=== PATIENT | male | born 1990 | race American Indian/Alaskan Native ===

== ENCOUNTER 2020-07-14 15:01 | Outpatient (REF) | payer OTHER, SELFPAY | END 2020-07-14 15:02 | disposition home or self-care (01) | LOC: HO.LAB 15:01 | PROVIDERS: PCP Internal Medicine; Visit Provider Internal Medicine | DX: Z20.828 Contact with and (suspected) exposure to other viral communicable diseases (principal) | CPT/HCPCS: 87635 ==

== ENCOUNTER 2020-12-01 16:50 | Outpatient (REF) | payer OTHER, SELFPAY ==
--- NOTE | ~2020-12-01 | XR_ITS ---
EXAMINATION: XR KNEE, RIGHT CLINICAL INFORMATION: Pain COMPARISON: None TECHNIQUE: Four views of the right knee. FINDINGS: Bones and soft tissues are normal. No fracture or joint effusion. Alignment is anatomic. Joint spaces are well maintained. No abnormal soft tissue calcification. XR/XR knee RT 4V IMPRESSION: Normal right knee.
== END 2020-12-01 16:51 | disposition home or self-care (01) ==
LOC: HO.XRAY 16:50
PROVIDERS: PCP Internal Medicine; Visit Provider Internal Medicine
DX: M25.561 Pain in right knee (principal)
CPT/HCPCS: 73564

== ENCOUNTER → 2020-12-13 10:49 | Outpatient (BNVA) | payer OTHER, SELFPAY | PROVIDERS: PCP Internal Medicine; Visit Provider Orthopaedic Surgery ==

== ENCOUNTER 2021-05-23 07:22 | Emergency (ER) | payer OTHER, SELFPAY ==
--- NOTE | ~2021-05-23 | XR_ITS ---
EXAMINATION: XR SHOULDER, LEFT CLINICAL INFORMATION: Fall. COMPARISON: None TECHNIQUE: AP external rotation, Grashey, scapular Y, and axillary views of the left shoulder. FINDINGS: There is anterior inferior shoulder dislocation without any underlying fracture. The soft tissues are normal. XR/XR shoulder LT min 2V IMPRESSION: Left shoulder anterior dislocation. No fracture seen. No soft tissue abnormality.
--- NOTE | ~2021-05-23 | XR_ITS ---
EXAMINATION: XR SHOULDER, LEFT CLINICAL INFORMATION: Postreduction. COMPARISON: None TECHNIQUE: AP external rotation, Grashey, scapular Y, and axillary views of the left shoulder. FINDINGS: There is normal alignment of glenohumeral joint status post reduction. No fracture seen these joint is normal. The soft tissues are normal. XR/XR shoulder LT min 2V IMPRESSION: Unremarkable left shoulder exam.
[2021-05-23 07:41] VITALS: BP 149/78; PULSE 89; RESP 20; TEMP 36.7; O2SAT 98; BMI 30.5
--- NOTE | 2021-05-23 07:46 | ED.UPPEXIN ---
HPI - Extremity Injury (Upper) General Chief Complaint: Fall Stated Complaint: lt arm injury - fall Time Seen by Provider: 05/23/21 07:44 Source: patient Mode of arrival: ambulatory Limitations: no limitations History of Present Illness HPI narrative: reached out and fell with arms backwards L side trying to stop his son from also falling, L shoulder pain since MD complaint: injury to: left and shoulder Onset (ago): minute(s) Other Extremity Injury: left: shoulder Other injuries: none Handedness: right Place: home Severity: severe Relieving factors: none Exacerbating factors: movement of extremity Context: fall and direct blow Associated symptoms: denies other symptoms Related Data Previous Rx's Medication Instructions Recorded cyclobenzaprine 10 mg tablet 10 mg PO TID PRN #14 tab 05/23/21 ibuprofen 600 mg tablet 600 mg PO Q6H PRN #30 tab 05/23/21 Allergies Allergy/AdvReac Type Severity Reaction Status Date / Time No Known Allergies Allergy Verified 12/13/20 11:00 Review of Systems Review of Systems: Constitutional : No Fever, No Chills ENT/Mouth : No Ear Pain, No Hoarseness, No sore throat Eyes: No Eye Pain, No Swelling, No Redness, No Foreign Body Cardiovascular : No Chest Pain, No SOB Respiratory : No Cough, No Dyspnea Gastrointestinal : No Nausea, No Vomiting, No Diarrhea, No abdominal Pain Genitourinary : No Dysuria, No Hematuria Musculoskeletal : positive joint pain, No Myalgias, No Joint Swelling Skin : No Skin lacerations, No rash Neuro : No Weakness, No Numbness, No Loss of Consciousness, No Dizziness, No Headache Psych : No Anxiety/Panic, No Depression Heme/Lymph: no easy bruising, no Lymphadenopathy Endocrine : No Polyuria, No Polydipsia All other systems reviewed and are negative [facility] Past Medical History Attestation statement: The following information was validated with the patient. Medical History (Updated 05/23/21 @ 08:22 by Sarah Byrnes DO) Patellofemoral pain syndrome of right knee Surgical History (Updated 12/13/20 @ 11:01 by LELAND Kruger) S/P hernia repair Family History Family History (Updated 12/13/20 @ 11:01 by LELAND Kruger) Mother No problems noted. Father No problems noted. 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 Oriented X3. No acute distress. Eyes: Pupils equal, round and reactive to light. ENT: Pharynx normal. Neck: Normal inspection. Neck supple. CVS: Normal heart rate and rhythm. Pulses normal. Respiratory: No respiratory distress. Breath sounds normal. Abdomen: Soft and nontender. Skin: Skin warm and dry. Normal skin color. Normal skin turgor. Extremities: No lower extremity edema. L shoulder deformity consistent with dislocation, no crepitus felt, distal NV intact Neuro: Oriented X 3. No motor deficit. No sensory deficit. MDM - Extremity Injury (Upper) MDM Narrative Medical decision making narrative: 31 yo healthy male here with fall and likely L shoulder dislocation, xrays, IM pain control - will attempt reduction in ED with scapular manipulation dispo per results and successful reduction Procedures Orthopedic Joint Reduction Joint #1: Time Out Performed: Yes Side: left Joint Reduction Location: shoulder Analgesia: none Shoulder Technique Used (if applicable): scapula manipulation Post-reduction neuro exam: intact Post-reduction vascular: intact Post Reduction X-Ray Obtained: Yes Post Reduction X-Ray Results: reduced Splint Applied: Yes Patient Tolerated Procedure: well Orthopedic Splinting/Casting Injury #1: Side: left Upper Extremity Injury Location: shoulder Upper Extremity Immobilizer: sling/shoulder immobilizer Discharge Plan Discharge Clinical Impression: Dislocation of shoulder region Qualifiers: Encounter type: initial encounter Laterality: left Qualified Code(s): S43.005A - Unspecified dislocation of left shoulder joint, initial encounter Patient Disposition: Home, Self-Care Instructions: Shoulder Dislocation (ED), Shoulder Immobilizer (ED) Additional Instructions: return to ED for any worsening symptoms or concerns SLING for 3 days do not reach above , overhead, behind or extend too far for 2 weeks Prescriptions: New cyclobenzaprine 10 mg tablet 10 mg PO TID PRN (Reason: muscle spasm) Qty: 14 RF: 0 ibuprofen 600 mg tablet 600 mg PO Q6H PRN (Reason: pain) Qty: 30 RF: 0 Stand Alone Forms: Work/School Release
[2021-05-23] MEDS: HYDROmorphone HCl 2 MG/ML VIAL IM (07:50)
[2021-05-23] MEDS: Ondansetron ODT 4 MG TAB.RAPDIS TRANSLINGU (07:51)
[2021-05-23] MEDS: Cyclobenzaprine HCl 10 MG TABLET PO (08:31)
[2021-05-23] MEDS: HYDROcodone Bit/Acetam 5/325 TABLET 1 TAB PO (08:32)
[2021-05-23 09:02] VITALS: BP 146/92; PULSE 65; O2SAT 98
== END 2021-05-23 09:03 | disposition home or self-care (01) ==
PROVIDERS: Emergency Provider Emergency Medicine; PCP Internal Medicine
DX: S43.085A Other dislocation of left shoulder joint, initial encounter (principal); W18.30XA Fall on same level, unspecified, initial encounter; Y93.9 Activity, unspecified; Y92.9 Unspecified place or not applicable; Y99.9 Unspecified external cause status
CPT/HCPCS: 73030; 96372; 99283; 99284; J1170

== ENCOUNTER → 2021-09-13 13:35 | Outpatient (BNVA) | payer OTHER, SELFPAY | PROVIDERS: Visit Provider Urology ==

== ENCOUNTER → 2021-12-13 11:57 | Outpatient (BNVA) | payer OTHER, SELFPAY | PROVIDERS: Visit Provider Urology | DX: Z30.2 Encounter for sterilization (principal); F41.8 Other specified anxiety disorders | CPT/HCPCS: 55250 ==

== ENCOUNTER 2024-02-05 10:00 | Outpatient (REF) | payer OTHER, SELFPAY ==
--- NOTE | ~2024-02-05 | XR_ITS ---
EXAMINATION: XR SHOULDER, LEFT CLINICAL INFORMATION: Left shoulder pain. COMPARISON: 05/23/2021 TECHNIQUE: AP external rotation, Grashey, scapular Y, and axillary views of the left shoulder. FINDINGS: Acromioclavicular alignment is anatomic. Mild glenohumeral joint space narrowing. No acute fracture or dislocation. No abnormal soft tissue calcifications. XR/XR shoulder LT min 2V IMPRESSION: No acute abnormality.
== END 2024-02-05 10:01 | disposition home or self-care (01) ==
LOC: HO.HHCX 10:00
PROVIDERS: Visit Provider Emergency Medicine
DX: M25.512 Pain in left shoulder (principal)
CPT/HCPCS: 73030

== ENCOUNTER 2024-02-17 10:38 | Outpatient (AMB) | payer OTHER, SELFPAY ==
--- NOTE | 2024-02-17 10:49 | A.OFFVIS_ITS ---
Intake Visit Reasons: New Pt - Lt shoulder pain Intake Note: John is a 33 year old right hand dominant male who presents today as a new patient for a evaluation of his left shoulder pain. Patient reports he dislocated his shoulder about 13 days ago due to falling down the stairs. He expresses his pain is a 2-3 out of 10 on the pain scale. Hx of dislocating the same shoulder about 3 times. Pain is worse when sleeping on his side, holding his arm up, and reaching for his back. Patient finds mild relief when taking motrine. Allergies No Known Allergies Allergy (Verified 02/17/24 10:52) HPI HPI New Pt - Lt shoulder pain: Details: 33-year-old right hand dominant male who presents in the office today, as a new patient, for an evaluation of left shoulder pain. Patient was referred to the office by Family Medicine status post left shoulder dislocation on 02/02/2024 after falling downstairs with the arm stretched out and hearing a pop. He presented wearing a sling. He reported the shoulder popped back into place on its own. While in the office today the patient reports he dislocated his left shoulder 13 days ago when he was holding his son and slipped going down the stairs. He denies being seen in the ED the day of the injury due to the shoulder ?popping back into place?. However, he reports he presented to Urgent Care 3 days later for evaluation. In the office he reports his pain is a 2-3/10. Reports increased pain with sleeping on his left side, holding his arm up, and reaching for his back. Confirm pain relief with Motrin. Patient is currently working with physical therapy. He attended his first physical therapy session on 02/14/2024. He has 6 sessions scheduled at this time. Patient has a history of left shoulder dislocation in 04/2021. Per provider note the patient reported one other dislocation in the past 3 years. [facility] Medical History Patellofemoral pain syndrome of right knee Surgical History S/P hernia repair Family History Mother No problems noted. Father No problems noted. 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 No ecchymosis, erythema, or edema. Full shoulder ROM in all planes. Negative cross-body reach. Negative empty can. Negative drop arm. Negative sulcus sign. NVI.? Assessment & Plan Assessment & Plan (1) History of dislocation of shoulder: Comment: Left shoulder X3 Code(s): Z87.39 - Personal history of other diseases of the musculoskeletal system and connective tissue Category: Medical Plan Mr. Montes is a 33-year-old right hand dominant male who presents in the office today, as a new patient, for an evaluation of left shoulder pain. Patient was referred to the office by Family Medicine status post left shoulder dislocation on 02/02/2024 after falling downstairs with the arm stretched out and hearing a pop. He presented wearing a sling. He reported the shoulder popped back into place on its own. While in the office today the patient reports he dislocated his left shoulder 13 days ago when he was holding his son and slipped going down the stairs. He denies being seen in the ED the day of the injury due to the shoulder ?popping back into place?. However, he reports he presented to Urgent Care 3 days later for evaluation. In the office he reports his pain is a 2-3/10. Reports increased pain with sleeping on his left side, holding his arm up, and reaching for his back. Confirm pain relief with Motrin. Patient is currently working with physical therapy. He attended his first physical therapy session on 02/14/2024. He has 6 sessions scheduled at this time. Patient has a history of left shoulder dislocation in 04/2021. Per provider note the patient reported one other dislocation in the past 3 years. Discussed surgical intervention versus conservative treatment options. At this time we have agreed to continue with the plan of working with physical therapy on ROM and strengthening the surrounding structures. Follow up will be in 6 weeks, or sooner if needed. X-rays of the left shoulder, obtained on 02/05/2024, revealed: No cute fracture or dislocation. Patient Instructions: Scribed by Anna Celis medical reception specialist, for Alena Etienne PA-C on 02/17/2024 at 10:50 a.m. EST. Corrections were made by cherelle Norris scribe, on 02/17/2024 at 12:38 pm, EST. Coding Level of Care Code New Pt Level 4 (07590) Diagnoses History of dislocation of shoulder Z87.39
== END 2024-02-17 11:05 | disposition home or self-care (01) ==
PROVIDERS: PCP Internal Medicine; Visit Provider Physician Assistant
DX: S43.082A Other subluxation of left shoulder joint, initial encounter (principal); Z87.39 Personal history of other diseases of the musculoskeletal system and connective tissue
CPT/HCPCS: 99203

== ENCOUNTER → 2024-02-17 10:38 | Outpatient (BNVA) | payer OTHER, SELFPAY | PROVIDERS: PCP Internal Medicine; Visit Provider Physician Assistant | DX: M25.512 Pain in left shoulder (principal); Z87.39 Personal history of other diseases of the musculoskeletal system and connective tissue | CPT/HCPCS: 99202 ==

== ENCOUNTER 2024-03-11 17:00 | Outpatient (RCR) | payer OTHER, SELFPAY | END 2024-04-17 15:40 | disposition home or self-care (01) | LOC: HO.PT 17:00 | PROVIDERS: PCP Internal Medicine; Visit Provider Emergency Medicine | DX: M25.512 Pain in left shoulder (principal); M24.412 Recurrent dislocation, left shoulder | CPT/HCPCS: 97110; 97161; 97530 ==

== ENCOUNTER 2024-04-07 13:17 | Outpatient (AMB) | payer OTHER, SELFPAY ==
--- NOTE | 2024-04-07 13:26 | MHC.OFFVIS ---
Intake Visit Reasons: OV-Lt shoulder pain-6wk follow up Intake Note: John is a 33 year old male who presents today for evaluation of his left shoulder pain. He states that he has a cramping sensation with certain movements. Patient reports pain comes and go in different times, he will have his arms relaxed and hell have a sharp pain. Physical therapy is going okay. Allergies No Known Allergies Allergy (Verified 02/17/24 10:52) HPI HPI OV-Lt shoulder pain-6wk follow up: Details: 33-year-old right hand dominant male who presents in the office today for a follow-up of left shoulder pain. I last saw the patient in the office on 02/17/2024, when he was encouraged to continue with PT to work on ROM and strengthening of the left shoulder.? While in the office today the patient reports that he did attend the physical therapy and feels as though this made minimal improvement for him as far as pain and ROM. He reports intermittent pain that occurs at various times, even when his arms are relaxed, resulting in sharp pain. Additionally, he reports a cramping sensation with certain movements. ? [facility] Medical History Patellofemoral pain syndrome of right knee Surgical History S/P hernia repair Family History Mother No problems noted. Father No problems noted. 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 No ecchymosis, erythema, or edema. Full shoulder ROM in all planes. Negative cross-body reach. Negative empty can. Negative drop arm. Negative sulcus sign. NVI.? Assessment & Plan Assessment & Plan (1) History of dislocation of shoulder: Comment: Left shoulder X3 Code(s): Z87.39 - Personal history of other diseases of the musculoskeletal system and connective tissue Category: Medical Plan is a 33-year-old right hand dominant male who presents in the office today for a follow-up of left shoulder pain. I last saw the patient in the office on 02/17/2024, when he was encouraged to continue with PT to work on ROM and strengthening of the left shoulder.? While in the office today the patient reports that he did attend the physical therapy and feels as though this made minimal improvement for him as far as pain and ROM. He reports intermittent pain that occurs at various times, even when his arms are relaxed, resulting in sharp pain. Additionally, he reports a cramping sensation with certain movements.? I have placed an order for an MRI to be obtained to further investigate the integrity of the left shoulder and surrounding structures. He was given the information to notify the office once the MRI is obtained to determine the treatment plan moving forward. Follow-up will be after the MRI is obtained, or sooner if needed.? Orders: Orders MR annette LT wo con Today Z87.39 - Personal history of other diseases of the musculoskeletal system and connective tissue Patient Instructions: Scribed by Mary Elizabeht biomedical engineering internship, for Alena Etienne PA-C on 04/07/2024 at?1:30 PM EST.? Coding Level of Care Code Est Pt Level 4 (19810) Diagnoses History of dislocation of shoulder Z87.39
== END 2024-04-07 13:43 | disposition home or self-care (01) ==
PROVIDERS: PCP Internal Medicine; Visit Provider Physician Assistant
DX: M25.512 Pain in left shoulder (principal); Z87.39 Personal history of other diseases of the musculoskeletal system and connective tissue
CPT/HCPCS: 99213

== ENCOUNTER → 2024-04-07 13:17 | Outpatient (BNVA) | payer OTHER, SELFPAY | PROVIDERS: PCP Internal Medicine; Visit Provider Physician Assistant | DX: Z87.39 Personal history of other diseases of the musculoskeletal system and connective tissue (principal) | CPT/HCPCS: 99212 ==

== ENCOUNTER 2024-06-05 11:30 | Outpatient (REF) | payer OTHER, SELFPAY ==
--- NOTE | ~2024-06-05 | MR_ITS ---
EXAMINATION: MR SHOULDER WITHOUT CONTRAST, LEFT CLINICAL INFORMATION: Left shoulder pain with movement. Dislocation 3 years ago with multiple subsequent dislocations. COMPARISON: Most recent left shoulder radiographs dated 02/05/2024. TECHNIQUE: MRI of the shoulder without contrast was performed on a high-field scanner. FINDINGS: ROTATOR CUFF: Intact. No muscle atrophy or fatty infiltration. BICEPS: Trace fluid within a proximal long head biceps tendon sheath which may represent normal variation versus minimal tenosynovitis. No tendon tear. CORACOACROMIAL ARCH: The undersurface of the acromion is flat with no subacromial spur. The acromioclavicular joint is normal. Trace fluid within subacromial-subdeltoid bursa, consistent with minimal bursitis. LABRUM/CAPSULE: Heterogeneously increased T2 signal throughout the anterior and anteroinferior labrum with a small focus of somewhat linear fluid signal at the anteroinferior labrum. Findings likely represent a nondisplaced undersurface labral tear. Evaluation limited without intra-articular contrast. The remaining labrum is intact. Intact joint capsule. GLENOHUMERAL JOINT/MARROW: Cortical depression with mild marrow edema at the posterior aspect of the humeral head measuring 2.2 x 1.9 cm, consistent with a Hill-Sachs deformity. Humeral head currently well seated within the glenoid. Intact articular cartilage. MR/MR shoulder LT wo con IMPRESSION: 1. Findings consistent with prior anterior shoulder dislocation including a Hill-Sachs deformity with mild marrow edema at the posterior aspect of the humeral head. Humeral head currently well seated within the glenoid. 2. Probable nondisplaced undersurface tear of the anterior and anteroinferior labrum. Evaluation limited without intra-articular contrast. 3. Trace fluid within a proximal long head biceps tendon sheath which may represent normal variation versus minimal tenosynovitis. No tendon tear. 4. Minimal subacromial-subdeltoid bursitis. Electronically signed by: Merrick Rincon MD 06/09/2024 10:28 AM EDT
== END 2024-06-05 11:31 | disposition home or self-care (01) ==
LOC: HO.MRI 11:30
PROVIDERS: PCP Internal Medicine; Visit Provider Physician Assistant
DX: Z87.39 Personal history of other diseases of the musculoskeletal system and connective tissue (principal)
CPT/HCPCS: 73221

== ENCOUNTER 2024-06-19 12:03 | Outpatient (AMB) | payer OTHER, SELFPAY ==
--- NOTE | 2024-06-19 12:15 | MHC.OFFVIS ---
Intake Visit Reasons: OV- Left Shoulder MRI review Intake Note: oJhn is a 34 year old right hand dominant male who presents today for an MRI review of his right shoulder. Patient has history of dislocation with continued pain and weakness, he has completed physical therapy with only mild improvements. MR/MR shoulder LT wo con IMPRESSION: 1. Findings consistent with prior anterior shoulder dislocation including a Hill-Sachs deformity with mild marrow edema at the posterior aspect of the humeral head. Humeral head currently well seated within the glenoid. 2. Probable nondisplaced undersurface tear of the anterior and anteroinferior labrum. Evaluation limited without intra-articular contrast. 3. Trace fluid within a proximal long head biceps tendon sheath which may represent normal variation versus minimal tenosynovitis. No tendon tear. 4. Minimal subacromial-subdeltoid bursitis. Allergies No Known Allergies Allergy (Verified 06/19/24 12:23) HPI HPI OV- Left Shoulder MRI review: Details: John is a 34 year old right hand dominant male who presents today for an MRI review of his left shoulder. Patient has history of dislocation with continued pain and weakness, he has completed physical therapy with only mild improvements. His initial dislocation occurred after a fall about 5 months ago. He has since dislocated it several times and now it is not so much dislocating as it feels painful and like there is some motion when he moves quickly away from his body. He has done physical therapy and it has helped but he still has an issue. He is an extremely avid weightlifter and this injury is preventing him from returning to his regular activities. [facility] Medical History Patellofemoral pain syndrome of right knee Surgical History S/P hernia repair Family History Mother No problems noted. Father No problems noted. Social History Alcohol intake: current Alcohol intake frequency: holidays/special occasions only Patient Tobacco Use Status: Never used Tobacco Current occupational status: employed Current occupation: [employer]/ right hand dominant Physical Exam Const General: cooperative, healthy appearing, no acute distress and well groomed Orientation/consciousness: oriented to person and oriented to place HEENT Head: Yes normal to inspection, Yes normocephalic and Yes atraumatic Eyes General: appearance normal, both eyes and all related structures Alignment and Position: alignment normal Conjunctivae: conjunctivae normal EOM: EOMs intact bilaterally Neck Neck: Yes normal visual inspection and Yes trachea midline Resp Other: No rerpiratory distress Effort & Inspection: normal respiratory effort and able to speak in complete sentences Cardio Other: Palpable radial pulse with no appreciable rythmic abnormalities GI Other: No abdominal distension Back/Spine/Pelvis Cervical Spine: normal cervical lordosis and cervical ROM normal Skin General skin exam: no rashes or lesions noted Neuro General: oriented to person, oriented to place and gait normal Extrem Other: Full range of motion left shoulder. Well-developed musculature. Positive apprehension and relocation. 1+ sulcus. Positive Cranston's. Results Reviewed Results Reviewed: I personally reviewed the MR images. MR/MR shoulder LT wo con IMPRESSION: 1. Findings consistent with prior anterior shoulder dislocation including a Hill-Sachs deformity with mild marrow edema at the posterior aspect of the humeral head. Humeral head currently well seated within the glenoid. 2. Probable nondisplaced undersurface tear of the anterior and anteroinferior labrum. Evaluation limited without intra-articular contrast. 3. Trace fluid within a proximal long head biceps tendon sheath which may represent normal variation versus minimal tenosynovitis. No tendon tear. 4. Minimal subacromial-subdeltoid bursitis. Assessment & Plan Assessment & Plan (1) History of dislocation of shoulder: Comment: Left shoulder X3 Code(s): Z87.39 - Personal history of other diseases of the musculoskeletal system and connective tissue Category: Medical Plan: (2) Instability of left shoulder joint: Code(s): M25.312 - Other instability, left shoulder Category: Medical Plan: This is a active and healthy 34-year-old gentleman with an unstable left shoulder. He has done physical therapy but has had multiple dislocations. He would like to get back to lifting weights. I recommend arthroscopic capsular plication with Bankart repair. I discussed this with him. Even if he is no longer dislocating I think he has instability and if he returns to lifting weights this will put him at increased risk for either injury or arthritis or both. I reviewed the surgery with him in detail as well as the risks, benefits and alternatives. I discussed the risk of stiffness, the risk of re-injury of the risk of extended time away from lifting weights as well as the medical complications associated with surgery. He expressed understanding and would like to proceed forward accordingly. Coding Level of Care Code Est Pt Level 4 (61385) Diagnoses History of dislocation of shoulder Z87.39 Instability of left shoulder joint M25.312
== END 2024-06-19 13:25 | disposition home or self-care (01) ==
PROVIDERS: PCP Internal Medicine; Visit Provider Orthopaedic Surgery
DX: M25.312 Other instability, left shoulder (principal); Z87.39 Personal history of other diseases of the musculoskeletal system and connective tissue
CPT/HCPCS: 99214

== ENCOUNTER → 2024-06-19 12:03 | Outpatient (BNVA) | payer OTHER, SELFPAY | PROVIDERS: PCP Internal Medicine; Visit Provider Orthopaedic Surgery | DX: M25.312 Other instability, left shoulder (principal); Z87.39 Personal history of other diseases of the musculoskeletal system and connective tissue | CPT/HCPCS: 99212 ==

== ENCOUNTER 2024-07-22 07:44 | Day surgery (SDC) | payer OTHER, SELFPAY ==
--- NOTE | 2024-07-21 10:04 | P.CONAN_ITS ---
Documented by User: Nahed Chance NP 07/21/24 10:04 HPI - Anesthesia Eval Consult details Narrative: 34yo M for Left Shoulder Arthroscopy with Capsular Plication PMFSH Active Problems Active Problems: All Active Problems Instability of left shoulder joint (Acute) History of dislocation of shoulder (Acute) Vasectomy evaluation (Acute) Anxiety about health (Acute) Past Medical History Medical History Patellofemoral pain syndrome of right knee Family History Family History Mother No problems noted. Father No problems noted. 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 Father No problems noted. 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 Meds Allergies Allergy/AdvReac Type Severity Reaction Status Date / Time No Known Allergies Allergy Verified 07/22/24 08:17 Exam Airway Mallampati Class: III TM Dist: >3cm Neck ROM: Full Loose/Missing/Broken Teeth: No Heart: RRR Lungs: CTA Assessment and Plan Assessment Anesthesia Assessment: Anesthesia Plan Discussed Final Anesthetic Review History of Problems with Anesthesia: No NPO: Yes ASA Class: I Final Preanesthetic Review: Meds/Allgs Chart Reviewed, Consent Obtained/Reviewed and Anes Risks/Benef Reviewed Patient Risk: Low Procedure Risk: Intermediate Anesthetic Plan Anesthetic Plan: GA Disposition: Standard PACU
[2024-07-22 08:20] VITALS: BMI 32.3
[2024-07-22 08:29] VITALS: BP 131/88; PULSE 83; RESP 16; TEMP 36.7; O2SAT 98
[2024-07-22] MEDS: Lactated Ringers 1,000 ML 100 ML IVCONT (08:50)
--- NOTE | 2024-07-22 09:01 | MHC.SHP ---
Pre-Procedural Eval Section A - 24 Hr Update-Section A only Date of Service: 07/22/24 The patient is an INPATIENT: No Changes since office visit: No Cold of Flu in the past 2 weeks, No New Medical Problems, No Changes in Medication and No Patient answered all questions The patient has been examined within 24 hours of the surgical procedure. The History & Physical has been completed within 30 days and I have reviewed it.: Yes Section B - Complete if H&P > 30 days Chief Complaint: Superior glenoid labrum lesion of left shoulder, Allergies: Allergies Allergy/AdvReac Type Severity Reaction Status Date / Time No Known Allergies Allergy Verified 07/22/24 08:17 Plan I have reviewed the history and physical and performed a pertinent physical examination on my patient. No changes have occurred unless specified. Time Spent With Patient Time: Total time managing care of this patient today ____ minutes.
[2024-07-22 12:27] VITALS: BP 128/73; PULSE 90; RESP 20; TEMP 36.5; O2SAT 93
[2024-07-22 12:32] VITALS: BP 122/72; PULSE 88; RESP 20; O2SAT 97
[2024-07-22 12:37] VITALS: BP 128/75; PULSE 86; RESP 20; O2SAT 96
[2024-07-22 12:42] VITALS: BP 128/76; PULSE 85; RESP 20; O2SAT 96
[2024-07-22 12:57] VITALS: BP 147/80; PULSE 89; RESP 20; TEMP 36.5; O2SAT 97
--- NOTE | 2024-07-22 13:14 | P.BOP_ITS ---
Brief Operative Note Date of Service: 07/22/24 Pre-op diagnosis: Left shoulder instability Post-op diagnosis: same Procedure: Left shoulder Bankhart repair with capsular plications Implants: Mcmahon and Nephew knotless Micropraptor x 2 Surgeon: Emery Mendoza MD Anesthesia: GETA and regional Was an Food And Beverage Outlets Manager used for this Procedure?: Yes Food And Beverage Outlets Manager: Alena Etienne Estimated blood loss (mL): 20 IV fluids (mL): 1,000 Pathology: none sent Condition: stable Disposition: PACU
--- NOTE | 2024-07-31 16:21 | W.PM.OPN ---
Operative Note Operative Note Date of Service: 07/22/24 Narrative: Date of Service: 07/22/24 Pre-op diagnosis: Left shoulder instability Post-op diagnosis: same Procedure: Left shoulder Bankhart repair with capsular plication Implants: Mcmahon and Nephew knotless Micropraptor x 2 Surgeon: Emery Mendoza MD Anesthesia: GETA and regional Was an Research Test Engine Evaluator used for this Procedure?: Yes Research Test Engine Evaluator: Alena Etienne Estimated blood loss (mL): 20 IV fluids (mL): 1,000 Pathology: none sent Condition: stable Disposition: PACU Procedure in detail: Patient was brought to the operating room and placed the the beach chair position. All bony prominences were well padded and the limb was prepped and draped in standard sterile fashion. A time out was called to identify proper site, proper procedure and proper surgeon. IV antibiotics per weight were administered. I began by making a posterolateral stab incision with a 15 blade. A blunt trochar was placed into the glenohumeral joint and I insufflated the joint with saline and a 30 degree arthroscope was placed. I established an outside- in anterior portal just distal to the biceps tendon. I then began my inspection of the glenohumeral joint. There was min G 1 cartilage changes of the johnny-inferior glenoid. There was evidence of prior trauma with a soft tissue Bankart and a positive drive-through sign. The subscapularis was intact and there was no under-surface RTC tearing. The biceps and superior labrum were intact. I then used a shaver to debride the anterior glenoid neck and passed a suture through the johnny-inferior capsule and labrum at the 7 o'clock position. I then repeated this slightly more proximal and then drilled for a 2.7 mm micro-raptor at the anterior glenoid rim. These inferior plication stitches were dunked into the glenoid rim at approximately the 7 o'clock position. This was then repeated with 2 plicating sutures and including some anterior inferior labrum this was reapproximated to the glenoid at the 9 o'clock position. Prior to this I had used a bur to debride the anterior inferior glenoid rim down to bleeding bone. This tightened the johnny-inferior capsule and labrum creating a bumper effect. I then repeated this process at 8 and 9 o'clock positions. I was satisfied with the plication and the labral repair. There was no longer a + drive though. I then removed all instrumentation and took my final pictures. Portals were closed with nylon. Patient was placed in an abduction sling, extubated and brought to the recovery room in stable condition. There were no known complications.
== END 2024-07-22 14:21 | disposition home or self-care (01) ==
LOC: HO.SSS 07:45
PROVIDERS: PCP Internal Medicine; Visit Provider Orthopaedic Surgery
PROC: (CPT 29805; principal; 2024-07-22 11:10)
DX: M25.312 Other instability, left shoulder (principal); M25.512 Pain in left shoulder; Z87.39 Personal history of other diseases of the musculoskeletal system and connective tissue; Z87.828 Personal history of other (healed) physical injury and trauma
CPT/HCPCS: 29806; C1713; J0131; J0171; J0665; J0690; J1100; J2003; J2250; J2405; J2704; J3010

== ENCOUNTER → 2024-07-22 07:44 | Outpatient (BNV) | payer OTHER, SELFPAY | PROVIDERS: PCP Internal Medicine; Visit Provider Orthopaedic Surgery | DX: M25.312 Other instability, left shoulder (principal) | CPT/HCPCS: 29806 ==

== ENCOUNTER 2024-07-30 13:25 | Outpatient (AMB) | payer OTHER, SELFPAY ==
--- NOTE | 2024-07-30 13:30 | A.OFFVIS_ITS ---
Intake Visit Reasons: PO LT shoulder capsular plication 07/22/24 NE Intake Note: John is a 34 year old right hand dominant male who presents today with his ultra sling for a post op appointment s/p LT shoulder capsular plication 07/22/24 NE. Patient reports he is doing well. He hasn't been using his pain medication. Patient mentions that he would like to know what was done in surgery. Allergies No Known Allergies Allergy (Verified 07/30/24 13:35) HPI HPI PO LT shoulder capsular plication 07/22/24 NE: Details: 34-year-old right hand dominant male who presents in the office today 8 days status post left shoulder Bankart repair with capsular plications, which was performed on 07/22/[address] Mendoza. While in the office today, the patient reports he is doing well. He has not been taking his pain medication. He would like to know about the surgical procedure that has been performed. [facility] Medical History Patellofemoral pain syndrome of right knee Surgical History S/P hernia repair Family History Mother No problems noted. Father No problems noted. 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 No surrounding erythema or drainage. No signs of infection. Forward flexion and abduction to 45 degrees. External rotation to neutral. NVI. Assessment & Plan Assessment & Plan (1) Instability of left shoulder joint: Code(s): M25.312 - Other instability, left shoulder Category: Medical Plan Mr. Montes is a 34-year-old right hand dominant male who presents in the office today 8 days status post left shoulder Bankart repair with capsular plications which was performed on 07/22/[address] Mendoza. While in the office today, the patient reports he is doing well. He has not been taking his pain medication. He would like to know about the surgical procedure that has been performed. Sutures were removed, and steri-strips were applied. The patient will remain in the sling for 6 weeks post-op. The patient will attend physical therapy and I have placed a referral for PT today. Follow-up will be in [address] Mendoza, or sooner if needed. Orders: Orders PT Evaluation and Treatment 07/30/24 M25.312 - Other instability, left shoulder Patient Instructions: Scribed by Marilynn Reddy, medical record retrieval specialist, for Alena Etienne PA-C on 07/30/24 at 1:40 pm EST. Coding Level of Care Code Global (45264) Diagnoses Instability of left shoulder joint M25.312
== END 2024-07-30 14:01 | disposition home or self-care (01) ==
LOC: HO.HOS 13:26
PROVIDERS: PCP Internal Medicine; Visit Provider Physician Assistant
DX: M25.312 Other instability, left shoulder (principal)
CPT/HCPCS: 99024

== ENCOUNTER → 2024-07-30 13:25 | Outpatient (BNVA) | payer OTHER, SELFPAY | PROVIDERS: PCP Internal Medicine; Visit Provider Physician Assistant | DX: M25.312 Other instability, left shoulder (principal) | CPT/HCPCS: 99212 ==

== ENCOUNTER 2024-08-31 14:36 | Outpatient (AMB) | payer OTHER, SELFPAY ==
--- NOTE | 2024-08-31 14:42 | MHC.OFFVIS ---
Intake Visit Reasons: PO LT shoulder capsular plication 07/22/24 NE Intake Note: John is a 34 year old right hand dominant male who presents today with his ultra sling for a post op appointment s/p LT shoulder capsular plication 07/22/24 NE. Patient presents in ultrasling & reports that he is doing well. Allergies No Known Allergies Allergy (Verified 07/30/24 13:35) HPI HPI PO LT shoulder capsular plication 07/22/24 NE: Details: John is a 34 year old right hand dominant male who presents today with his ultra sling for a post op appointment s/p LT shoulder capsular plication 07/22/24 NE. Patient presents in ultrasling & reports that he is doing well. COUNT INCLUDES THE [facility] Medical History Patellofemoral pain syndrome of right knee Surgical History S/P hernia repair Family History Mother No problems noted. Father No problems noted. 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 Can comfortably externally rotated about 15 degrees. Abduction to 90 degrees. Portals clean dry and intact. Skin intact to light touch left upper extremity. Assessment & Plan Assessment & Plan (1) Instability of left shoulder joint: Code(s): M25.312 - Other instability, left shoulder Category: Medical Plan: Status post capsular plication left shoulder. He is doing well and I recommend that he continue physical therapy. Follow up in 6 weeks. Coding Level of Care Code Global (20963) Diagnoses Instability of left shoulder joint M25.312
== END 2024-08-31 15:28 | disposition home or self-care (01) ==
PROVIDERS: PCP Internal Medicine; Visit Provider Orthopaedic Surgery
DX: M25.312 Other instability, left shoulder (principal)
CPT/HCPCS: 99024

== ENCOUNTER → 2024-08-31 14:36 | Outpatient (BNVA) | payer OTHER, SELFPAY | PROVIDERS: PCP Internal Medicine; Visit Provider Orthopaedic Surgery | DX: M25.312 Other instability, left shoulder (principal) | CPT/HCPCS: 99212 ==

== ENCOUNTER 2024-09-22 10:22 | Outpatient (REF) | payer OTHER, SELFPAY ==
[2024-09-22 14:42] LABS: MANUAL DIFF FLAG NO
[2024-09-22 14:47] LABS: Basophils Percent Auto 0.7 % (0-2); Eosinophils Absolute Auto 0.1 X10*3/uL (0.0-0.4); Eosinophils Percent Auto 1.8 % (0-4); Hematocrit 42.9 % (42.0-52.0); Hemoglobin 15.4 g/dl (14.0-18.0); Imm Gran Abs Auto 0.01 X10*3/uL (0.00-0.03); Imm Gran Pct Auto 0.2 % (0.0-0.4); Lymphocytes Absolute Auto 1.6 X10*3/uL (1.2-4.9); Lymphocytes Percent Auto 30.1 % (20-40); Mean Corpuscular HGB Conc 35.9 g/dl (31.0-36.0); Mean Corpuscular Hemoglobin 31.4 pg (27.0-33.0); Mean Corpuscular Volume 87.6 fL (80.0-98.0); Mean Platelet Volume 9.9 fL (9.4-12.4); Monocytes Absolute Auto 0.4 X10*3/uL (0.1-1.2); Monocytes Percent Auto 6.6 % (2-11); Neutrophils Absolute Auto 3.3 x10*3/uL (2.0-8.3); Neutrophils Percent Auto 60.6 % (45-73); Platelet Count 313 X10*3/uL (160-400); Red Cell Distribution Width 12.2 % (11.0-16.0); White Blood Count 5.4 X10*3/uL (4.8-10.8)
[2024-09-22 15:01] LABS: Alanine Aminotransferase 24 U/L (0-40); Albumin Level 4.6 g/dL (3.5-5.0); Alkaline Phosphatase 75 U/L (39-117); Anion Gap 12 (12-20); Aspartate Amino Transferase 23 U/L (5-37); Bilirubin Total 0.5 mg/dL (0.0-1.0); Blood Urea Nitrogen 11 mg/dL (9-16); Calcium 9.7 mg/dL (8.4-10.2); Carbon Dioxide 28 mmol/L (22-29); Chloride 106 mmol/L (96-108); Estimated Glomerular Filt Rate > 60; Glucose Random 67 mg/dL (60-115); Potassium 3.8 mmol/L (3.3-5.1); Sodium 142 mmol/L (135-145); Total Protein 7.9 g/dL (6.5-8.0)
[2024-09-24 14:00] LABS: Syphilis Screen Nonreactive (Nonreactive)
[2024-09-24 14:12] LABS: HIV AB/AG Nonreactive (Nonreactive); HIV Num 1 0.08 S/CO (0.00-0.99)
[2024-09-24 17:59] LABS: HCV Log PCR <1.18 NOT DETECTED Log IU/mL (NOT DETECTED); HepC Viral Load <15 NOT DETECTED IU/mL (NOT DETECTED)
== END 2024-09-22 10:23 | disposition home or self-care (01) ==
LOC: HO.CHCLDS 10:22
PROVIDERS: Visit Provider Internal Medicine
DX: E66.9 Obesity, unspecified (principal); Z11.3 Encounter for screening for infections with a predominantly sexual mode of transmission
CPT/HCPCS: 36415; 80053; 84443; 85025; 86780; 87389; 87522

== ENCOUNTER 2024-10-15 08:04 | Outpatient (AMB) | payer OTHER, SELFPAY ==
--- NOTE | 2024-10-15 08:07 | A.OFFVIS_ITS ---
Vital Signs 10/15/24 08:12 Height 6 ft 1 in Weight 245 lb BMI 32.3 Intake Visit Reasons: PO LT shoulder capsular plication 07/22/24 NE Intake Note: John is a 34 year old right hand dominant male who presents today with his ultra sling for a post op appointment s/p LT shoulder capsular plication 07/22/24 NE. He was instructed to continue physical therapy. Patient reports that he is doing well, he has some limited and painful ROM but he continues to work on this with physical therapy who suggests that this will improve with time Allergies No Known Allergies Allergy (Verified 10/15/24 08:08) HPI HPI PO LT shoulder capsular plication 07/22/24 NE: Details: John is a 34 year old right hand dominant male who presents today with his ultra sling for a post op appointment s/p LT shoulder capsular plication 07/22/24 NE. He was instructed to continue physical therapy. Patient reports that he is doing well, he has some limited and painful ROM but he continues to work on this with physical therapy who suggests that this will improve with time [facility] Medical History Patellofemoral pain syndrome of right knee Surgical History S/P hernia repair Family History Mother No problems noted. Father No problems noted. 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 Doing well. Reviewed the surgery and my expectations and how it would anticipate his progress. He understands this and will continue to avoid lifting outside of the safe zones. Follow up as needed Coding Level of Care Code Global (17287) Diagnoses History of dislocation of shoulder Z87.39
[2024-10-15 08:12] VITALS: BMI 32.3
== END 2024-10-15 12:11 | disposition home or self-care (01) ==
PROVIDERS: PCP Internal Medicine; Visit Provider Orthopaedic Surgery
DX: Z87.39 Personal history of other diseases of the musculoskeletal system and connective tissue (principal)
CPT/HCPCS: 99024

== ENCOUNTER → 2024-10-15 08:04 | Outpatient (BNVA) | payer OTHER, SELFPAY | PROVIDERS: PCP Internal Medicine; Visit Provider Orthopaedic Surgery | DX: Z09 Encounter for follow-up examination after completed treatment for conditions other than malignant neoplasm (principal); Z87.39 Personal history of other diseases of the musculoskeletal system and connective tissue | CPT/HCPCS: 99212 ==

== ENCOUNTER 2024-10-22 17:09 | Outpatient (RCR) | payer OTHER, SELFPAY ==
--- NOTE | 2024-08-06 11:18 | MHC.PT.EP ---
[facility] [place] Office [place] Office [place] Office [address] [phone] F: [phone] F: [phone] F: [phone] F: [phone] Physical Therapy Plan of Care Date of Evaluation: 08/06/24 Date of Surgery: 07/22/24 Diagnosis: Instability of L shoulder Assessment: John is a 34 year old male who is referred to PT for instability of L shoulder . He is 2 weeks s/p bankart repair with capsular plication. On PT examination he presented with TTP over anterior inferior aspect of shoulder joint line, L UT- 3-4/10 pain in L shoulder at rest and with movements, decreased L shoulder ROM, decreased L shoulder and scap strength and altered posture. He lives with his fianc? and is independent with all self care activities. He however does not perform any IADLS. 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 He enjoys exercising in the gym 6/week. He would benefit from skilled PT to address the aforementioned impairments and improve tolerance to functional activities. Frequency and Duration: The patient will be seen 2/week for 12 weeks Short Term Goals: 1. Pt will deny having any pain at rest in 2 weeks 2. Pt will demonstrate shoulder ROM progression per protocol which will enable him to dress his upper body without pain in 4 weeks. 3. Pt will demonstrate an increase in muscle strength by 1 grade which will enable him to perform light chores at home without pain in 6 weeks Research Animal Attendant Goals: 1. Pt will have all shoulder ROM WNL and have no pain in 8 weeks. 2. Pt will demonstrate improved shoulder proprioception and endurance which will enable him to perform all IADLS without pain in 10 weeks 3. Pt will be independent with all HEP and return to exercising in gym without difficulty in 12 weeks Treatment Plan: Modalities to reduce pain, spasms and effusion. Manual therapy to restore motion and function. Therapeutic exercise to improve strength and flexibility. Neuromuscular re-education for posture and balance. Therapeutic activities to return to functional activities of daily living. Electronically signed by: Cassie Reyna PT DPT Please sign and return to therapist. Thank you for your referral.
--- NOTE | 2024-12-07 11:41 | MHC.PT.DC ---
[facility] [place] Office [place] Office [place] Office [address] [phone] F: [phone] F: [phone] F: [phone] F: [phone] Physical Therapy Discharge Report Diagnosis: Instability of L shoulder Date of Surgery: 07/22/24 Date of Evaluation: 08/06/24 Date of Discharge: 12/07/24 Treatments to Date: 11 Cancellations to Date: 3 No Shows to Date: 2 Discharge Status: Patient Elected to Stop Discharge Summary: John attended 11 PT visits and no showed and canceled his last 2 appointments. He has not called in over a month to make more appointments. He is therefore being d/c from PT. Electronically signed by: Cassie Reyna PT DPT Please sign and return to therapist. Thank you for your referral.
== END 2024-12-07 11:42 | disposition home or self-care (01) ==
LOC: HO.PT 17:09
PROVIDERS: PCP Internal Medicine; Visit Provider Physician Assistant
DX: M25.312 Other instability, left shoulder (principal)
CPT/HCPCS: 97110; 97140; 97161; 97530